=== PATIENT | male | born 2000 | race Two or more races ===

== ENCOUNTER 2024-01-20 11:30 | Emergency (ER) | payer OTHER ==
[~2024-01-20] VITALS: Ht 180.3 cm; Wt 83.9 kg
[2024-01-20] MEDS ORDERED: KETOROLAC TROMETHAMINE 15 MG/ML VIAL ONE (12:11)
[2024-01-20] MEDS: IV NS 0.9% 1,000 ML BAG IV ONE (12:29)
[2024-01-20] MEDS ORDERED: IOHEXOL-300 100 ML VIAL IV ONE (12:31)
[2024-01-20] MEDS: KETOROLAC TROMETHAMINE 15 MG/ML VIAL IV ONE (12:31)
[2024-01-20] MEDS ORDERED: IV NS 0.9% 250 ML IV ONE (12:31)
[2024-01-20 12:53] LABS: BASOPHILS % (AUTO) 0.7 % (0.0-2.0); EOSINOPHILS # (AUTO) 0.1 K/uL (0.0-0.7); EOSINOPHILS % (AUTO) 1.5 % (0.0-6.0); HEMATOCRIT 46 % (39-51); HEMOGLOBIN 15.6 g/dL (13.5-17.5); LYMPHOCYTES # (AUTO) 1.5 K/uL (0.8-4.8); LYMPHOCYTES % (AUTO) 19.9 % (20.0-44.0); MEAN CORPUSCULAR HEMOGLOBIN 29 PG (26.0-33.0); MEAN CORPUSCULAR HGB CONC 34 g/dl (31.0-36.0); MEAN CORPUSCULAR VOLUME 86 fL (80-96); MONOCYTES # (AUTO) 0.7 K/uL (0.1-1.30); NEUTROPHILS % (AUTO) 68.9 % (43.0-81.0); PLATELET COUNT (AUTO) 244 K/uL (150-450); RED BLOOD CELL COUNT(AUTO) 5.39 MIL/uL (4.5-6.0); RED CELL DISTRIBUTION WIDTH 13.5 % (11.5-15.0); WHITE BLOOD COUNT (AUTO) 7.3 K/uL (4.3-11.0)
[2024-01-20 13:00] LABS: CALCIUM, SERUM 9.4 mg/dL (8.5-10.1); CREATININE 0.8 mg/dL (0.6-1.3); POTASSIUM 3.9 mmol/L (3.5-5.1)
[2024-01-20 13:06] LABS: ALBUMIN 4.1 g/dL (3.4-5.0); BILIRUBIN,DIRECT 0.1 mg/dL (0.0-0.2); BILIRUBIN,TOTAL 0.3 mg/dL (0.2-1.0); TOTAL PROTEIN, SERUM 7.9 g/dL (6.4-8.2)
[2024-01-20] MEDS ORDERED: [UNRECOGNIZED DRUG - CODE] PO (13:11)
[2024-01-20 13:45] VITALS: BP 126/72; TEMP 98; O2SAT 99
== END 2024-01-20 13:50 | disposition home or self-care (01) ==
LOC: ER 11:43
DX: R10.31 Right lower quadrant pain (principal); E73.9 Lactose intolerance, unspecified
CPT/HCPCS: 99285; 74177; 96374; 96361; 85025; 80048; 83690; 80076; 36415; J7030; J7050; Q9967; J1885